=== PATIENT | female | born 1945 | race Caucasian/White ===

== ENCOUNTER 2018-01-17 14:15 | Emergency (ER) | payer MEDICARE ==
[~2018-01-17] VITALS: Ht 170.2 cm; Wt 90.7 kg
[~2018-01-17 14:15] MED LIST: ASPI-86 PO; CALCIUM; POTA20PA11 PO; TRIA1TAB42
--- NOTE | 2018-01-17 14:30 | ED General ---
General Stated Complaint: RT FOOT SWOLLEN, RT HIP PAIN Source of Information: Patient Exam Limitations: No Limitations History of Present Illness Date Seen by Provider: Jan 17, 2018 Time Seen by Provider: 14:28 Initial Comments Patient is a 72-year-old female who presents to the emergency room with complaints of right hip pain posterior that travels down her right leg and right great toe pain and redness. On examination patient does have ulcerations to the right great toe in the pad of the right forefoot. Patient is a very poor historian and is accompanied by significant other. Timing/Duration: 2-3 Days Modifying Factors: improves with Immobilization Associated Systoms: Denies Symptoms Allergies and Home Medications Allergies Coded Allergies: Penicillins (Unverified Allergy, Unknown, 01/17/18) Home Medications Potassium Chloride 20 Meq/Pkt Packet, 1 EACH PO DAILY Prescribed by: ISSA ALVAREZ on 05/29/111955 Patient Home Medication List Home Medication List Reviewed: Yes Constitutional: no symptoms reported, see HPI EENTM: see HPI, no symptoms reported Respiratory: no symptoms reported, see HPI Cardiovascular: no symptoms reported, see HPI Gastrointestinal: no symptoms reported, see HPI Genitourinary: no symptoms reported, see HPI Musculoskeletal: see HPI, other (right posterior hip pain, right great toe pain.) Skin: no symptoms reported, see HPI Psychiatric/Neurological: No Symptoms Reported, See HPI Hematologic/Lymphatic: No Symptoms Reported, See HPI Immunological/Allergic: no symptoms reported, see HPI Past Hzyvisc-Pyniut-Uhfxaj Hx Patient Social History Recent Foreign Travel: No Contact w/Someone Who Travel: No Physical Exam Vital Signs Vital Signs - First Documented 01/17/18 14:31 Temp 98.9 Pulse 70 Resp 16 B/P (MAP) 123/62 (82) Pulse Ox 98 O2 Delivery Room Air Capillary Refill : General Appearance: No Apparent Distress, WD/WN Neck: Full Range of Motion, Normal Inspection Respiratory: Chest Non Tender, Lungs Clear Cardiovascular: Regular Rate, Rhythm Gastrointestinal: Normal Bowel Sounds, No Organomegaly, No Pulsatile Mass, Non Tender Rectal: Normal Exam, Normal Rectal Tone Back: Normal Inspection Extremity: Normal Capillary Refill, Normal Inspection Neurologic/Psychiatric: Alert, Oriented x3, Normal Mood/Affect Skin: Other (ulcerations to the right great toe and the right pad of the forefoot.) Progress/Results/Core Measures Suspected Sepsis SIRS Temperature: Pulse: Respiratory Rate: Laboratory Tests 01/17/18 15:05: White Blood Count 10.1 Blood Pressure / Mean: Laboratory Tests 01/17/18 15:05: Creatinine 1.57H, Platelet Count 177, Total Bilirubin 1.0 Results/Orders Lab Results Laboratory Tests Test 01/17/18 15:05 Range/Units White Blood Count 10.1 4.3-11.0 10^3/uL Red Blood Count 4.75 4.35-5.85 10^6/uL Hemoglobin 14.8 11.5-16.0 G/DL Hematocrit 42 35-52 % Mean Corpuscular Volume 89 80-99 FL Mean Corpuscular Hemoglobin 31 25-34 PG Mean Corpuscular Hemoglobin Concent 35 32-36 G/DL Red Cell Distribution Width 13.6 10.0-14.5 % Platelet Count 177 130-400 10^3/uL Mean Platelet Volume 10.6 H 7.4-10.4 FL Neutrophils (%) (Auto) 60 42-75 % Lymphocytes (%) (Auto) 28 12-44 % Monocytes (%) (Auto) 11 0-12 % Eosinophils (%) (Auto) 1 0-10 % Basophils (%) (Auto) 0 0-10 % Neutrophils # (Auto) 6.0 1.8-7.8 X 10^3 Lymphocytes # (Auto) 2.8 1.0-4.0 X 10^3 Monocytes # (Auto) 1.1 H 0.0-1.0 X 10^3 Eosinophils # (Auto) 0.1 0.0-0.3 10^3/uL Basophils # (Auto) 0.0 0.0-0.1 10^3/uL Sodium Level 136 135-145 MMOL/L Potassium Level 3.6 3.6-5.0 MMOL/L Chloride Level 103 98-107 MMOL/L Carbon Dioxide Level 25 21-32 MMOL/L Anion Gap 8 5-14 MMOL/L Blood Urea Nitrogen 32 H 7-18 MG/DL Creatinine 1.57 H 0.60-1.30 MG/DL Estimat Glomerular Filtration Rate 32 BUN/Creatinine Ratio 20 Glucose Level 167 H 70-105 MG/DL Calcium Level 9.6 8.5-10.1 MG/DL Total Bilirubin 1.0 0.1-1.0 MG/DL Aspartate Amino Transf (AST/SGOT) 25 5-34 U/L Alanine Aminotransferase (ALT/SGPT) 33 0-55 U/L Alkaline Phosphatase 64 40-136 U/L Total Protein 8.0 6.4-8.2 GM/DL Albumin 4.0 3.2-4.5 GM/DL My Orders Orders - ABDIAS BILLS APRN Ketorolac Injection (Toradol Injection) (01/17/18 14:45) Saline Lock/Iv-Start (01/17/18 14:42) Cbc With Automated Diff (01/17/18 14:42) Comprehensive Metabolic Panel (01/17/18 14:42) Foot, Right, 3 View (01/17/18 14:42) Erythrocyte Sedimentation Rate (01/17/18 14:42) Ketorolac Injection (Toradol Injection) (01/17/18 15:15) Medications Given in ED Current Medications Medications Dose Ordered Sig/Jayne Route Start Time Stop Time Status Last Admin Dose Admin Ketorolac Tromethamine 15 mg ONCE ONCE IVP 01/17/18 15:15 01/17/18 15:16 DC 01/17/18 15:30 15 MG Vital Signs/I&O Vital Sign - Last 12Hours 01/17/18 01/17/18 14:31 15:30 Temp 98.9 98.9 Pulse 70 Resp 16 B/P (MAP) 123/62 (82) Pulse Ox 98 O2 Delivery Room Air Capillary Refill : Departure Impression Impression: Primary Impression: CELLULITIS OF RIGHT TOE Additional Impression: SCIATICA, RIGHT SIDE Disposition: 01 HOME, SELF-CARE Condition: Stable/Unchanged Departure-Patient Inst. Decision time for Depature: 15:56 Referrals: NO,LOCAL PHYSICIAN (PCP) Primary Care Physician Patient Instructions: Cellulitis (Skin Infection), Adult (DC), Sciatica Add. Discharge Instructions: Take medications as directed, follow-up with your physician for recheck within 1 week. Return back to the emergency room with any concerns as needed. Keep the wound on the right foot clean and dry changing dressings daily. Watch for increased signs of infection such as redness, drainage, red streaking up the leg. Scripts Tramadol HCl (Ultram) 50 Mg Tablet 50 MG PO Q6H for Pain, #14 TAB Prov: ABDIAS BILLS APRN 01/17/18 Cephalexin (Keflex) 500 Mg Capsule 500 MG PO QID for 7 Days, #28 CAP Prov: ABDIAS BILLS APRN 01/17/18 ABDIAS BILLS APRN Jan 17, 2018 14:30
[2018-01-17] MEDS ORDERED: KETOROLAC 15 MG/ML VIAL IVP ONE (14:45)
[2018-01-17] MEDS ORDERED: KETOROLAC 30 MG/ML VIAL IVP ONE (15:15)
[2018-01-17 15:21] LABS: BASOPHILS % (AUTO) 0 % (0-10); EOSINOPHILS # (AUTO) 0.1 10^3/uL (0.0-0.3); EOSINOPHILS % (AUTO) 1 % (0-10); HEMATOCRIT 42 % (35-52); HEMOGLOBIN 14.8 G/DL (11.5-16.0); LYMPHOCYTES # (AUTO) 2.8 X 10^3 (1.0-4.0); LYMPHOCYTES % (AUTO) 28 % (12-44); MEAN CORPUSCULAR HEMOGLOBIN 31 PG (25-34); MEAN CORPUSCULAR HGB CONC 35 G/DL (32-36); MEAN CORPUSCULAR VOLUME 89 FL (80-99); MEAN PLATELET VOLUME 10.6 FL (7.4-10.4); MONOCYTES # (AUTO) 1.1 X 10^3 (0.0-1.0); MONOCYTES % (AUTO) 11 % (0-12); NEUTROPHILS % (AUTO) 60 % (42-75); PLATELET COUNT 177 10^3/uL (130-400); RED BLOOD COUNT 4.75 10^6/uL (4.35-5.85); RED CELL DISTRIBUTION WIDTH 13.6 % (10.0-14.5); WHITE BLOOD COUNT 10.1 10^3/uL (4.3-11.0)
--- NOTE | 2018-01-17 15:30 | Diagnostic Imaging Report ---
INDICATION: Right foot pain EXAM: AP, oblique, and lateral views of the right foot are obtained. FINDINGS: No fracture or acute bony abnormality is seen. There is plantar calcaneal spurring. There is moderate degenerative change of the first MTP joint. 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 No acute fracture or acute bony abnormality. There is plantar calcaneal spurring. Dictated by: Dictated on workstation # [id number]
[2018-01-17 15:42] LABS: CALCIUM 9.6 MG/DL (8.5-10.1); CREATININE SERUM 1.57 MG/DL (0.60-1.30); POTASSIUM 3.6 MMOL/L (3.6-5.0)
[2018-01-17] MEDS ORDERED: TRAM-42 PO (16:03)
[2018-01-17] MEDS ORDERED: CEPH-507 PO (16:03)
[2018-01-17 16:33] VITALS: BP 124/60
[2018-01-17 16:35] LABS: ERYTHROCYTE SEDIMENTATION RATE 46 MM/HR (0-30)
== END 2018-01-17 16:33 | disposition home or self-care (01) ==
LOC: EDUNIT# 14:15 → ER 14:17
DX: L03.031 Cellulitis of right toe (principal); M54.31 Sciatica, right side; Z88.0 Allergy status to penicillin
CPT/HCPCS: 36415; 73630; 80053; 85025; 85652; 96374